=== PATIENT | female | born 1995 | race Caucasian/White ===

== ENCOUNTER 2025-05-23 17:52 | Emergency (ER) | payer MEDICAID, SELFPAY ==
[2025-05-23 17:53] VITALS: BP 127/71; PULSE 85; RESP 16; TEMP 36.9; O2SAT 100; BMI 31.5
--- NOTE | 2025-05-23 18:08 | US_ITS ---
PROCEDURE: TRANSVAGINAL W/PREG US N/A REASON FOR EXAM: RIGHT-SIDED PELVIC PAIN TECHNIQUE: TRANSVAGINAL W/PREG US COMPARISON: None available at the time of this dictation. FINDINGS Single live intrauterine gestation is identified with a crown-rump length measuring 3.7 mm corresponding to a gestational age of 6 weeks and 2 days. No heart rate identified. Clinical and imaging surveillance is advised. Uterus is otherwise unremarkable measuring 8.8 x 6.3 x 5.5 cm. No fibroids. Cervix is closed. Minimal fluid in the cul-de-sac. Bilateral ovaries are noted with preserved symmetric vascular flow. There is however mild fluid in the pelvis. Subchorionic hematoma is noted measuring up to 1.9 cm. US/Transvaginal w/Preg US IMPRESSION: Single live intrauterine gestation corresponding to a gestational age of 6 week s and 2 days. No heart rate identified. Small subchorionic hemorrhage is seen. Clinical and imaging surveillance is ad vised. Reading Location: [facility]
--- NOTE | 2025-05-23 18:10 | EDS_ITS ---
HPI HPI - Female History of Present Illness Chief Complaint: Narrative Narrative: 29-year-old female, G4, P2 at approximately 6 to 7 weeks gestation presents with right-sided pelvic pain and cramping that she has had for the last week. It was severe today so she became concerned and presents to the emergency department. She denies any vaginal bleeding. She states she sees an MEDICAL AND HEALTH SERVICES MANAGER in [place] who is aware of her cramping associated with nausea. She states that her quantitative beta-hCG's have risen appropriately and or in the 40s previously and then her last 1 being 79,000. She denies any exacerbating or alleviating factors. PFSH PFSH Allergy/AdvReac Type Severity Reaction Status Date / Time No Known Allergies Allergy Verified 05/23/25 17:56 Social History Smoking Status: Never smoker ROS ROS ED ROS Narrative Review of systems positive for low back pain and right pelvic pain/cramping. No vaginal bleeding. No fevers or chills. Symptoms present for approximately 1 week, worsened today. Positive nausea but no vomiting. No exacerbating or alleviating factors. EXAM Physical Exam Narrative Exam Narrative: Afebrile. Vital signs noted. Nontoxic-appearing. Cardiovascular examination reveals regular rate and rhythm. Lungs are clear to auscultation bilaterally. The abdomen is soft and nontender with no pain over McBurney's point. No guarding or rebound. Minimal pelvic discomfort on palpation. Neurological examination nonfocal, nonlateralizing. Const Vital Signs: 05/23/25 17:53 05/23/25 20:42 Temperature 98.4 F Temperature Source Oral Pulse Rate 85 83 Respiratory Rate 16 14 Blood Pressure 127/71 H 130/69 H Blood Pressure Mean 89 89 Pulse Ox 100 100 Oxygen Delivery Method Room Air MDM MDM MDM Narrative Medical decision making narrative: The differential diagnosis includes but not limited to acute appendicitis versus ovarian/corpus luteal pain versus ectopic versus threatened AB. She is not having any vaginal bleeding. Pelvic examination was deferred. CBC, CMP, urinalysis, serum and quantitative hCG will be obtained as well as blood type. Her to rule out ectopic, I do feel that ultrasound is indicated. I reviewed her laboratory work and she has normal white count of 5.6 with hemoglobin normal at 12.8, hematocrit 38.0, platelet count normal at 195. CMP shows BUN normal at 12 with creatinine low at 0.57, glucose of 77. LFTs are normal. Blood type is a positive. Quantitative beta-hCG is 58,837. Although she stated that her previous quantitative measurement was 79,000, it is a different health system that performed the measurement. Urine macro analysis shows no evidence of infection with negative nitrites and negative leukocytes. Microanalysis shows 0 bacteria. I do not feel antibiotics are indicated. Reviewed the radiology report of the obstetric ultrasound. It was read as single intrauterine at approximately 6 weeks and 2 days. However, no heart rate was identified. May be too early in the gestation. She has a small subchorionic hemorrhage seen, but denies any vaginal bleeding. Pelvic exam was deferred. At this point in time, I do feel that she could be dis charged unless her microanalysis does not show bacteria. She will follow-up with an MEDICAL AND HEALTH SERVICES MANAGER. She states she no longer wants to see the one in [place]. I was able to discuss patient with Dr. Harley with [facility] MEDICAL AND HEALTH SERVICES MANAGER. It may be expected that they would see a heart rate at this gestation, but she does agree that she probably needs a repeat ultrasound in 5 to 7 days. She is welcome to call the office or follow-up with her original MEDICAL AND HEALTH SERVICES MANAGER. Patient is to return with increased pain, vaginal bleeding, new or worsening symptoms. She was informed that this may be more of a miscarriage/intrauterine demise and she acknowledges an understanding as she has had a previous miscarriage. I stressed the importance of follow-up with ultrasound with an MEDICAL AND HEALTH SERVICES MANAGER. Return instructions to the emergency department were reviewed. Disposition is discharged home in stable condition. History & Record Review Discussion w/independent historian: Patient Additional record(s) reviewed:: No prior records (No prior ED visits) Lab Data Attestation: I reviewed the patient's lab results. Labs: Laboratory Results - last 24 hr 05/23/25 05/23/25 18:13 19:11 WBC 5.6 RBC 4.11 L Hgb 12.8 Hct 38.0 MCV 92.5 MCH 31.1 MCHC 33.7 RDW Std Deviation 42.4 RDW Coeff of Matilde 12.4 Plt Count 195 MPV 10.0 Immature Gran % (Auto) 0.400 Neut % (Auto) 52.0 Lymph % (Auto) 32.3 [place] % (Auto) 13.5 H Eos % (Auto) 1.1 Baso % (Auto) 0.7 Absolute Neuts (auto) 2.9 Absolute Lymphs (auto) 1.82 Nucleated RBC % 0 Sodium 137 Potassium 3.6 Chloride 103 Carbon Dioxide 23.2 Anion Gap 11 BUN 12 Creatinine 0.57 L Estim Creat Clear Calc 154.75 Est GFR (MDRD) Non-Af 125 BUN/Creatinine Ratio 21.8 H Glucose 77 Calcium 9.3 Total Bilirubin 0.29 AST 18 ALT 18 Alkaline Phosphatase 46 Total Protein 7.0 Albumin 4.5 Globulin 2.5 Albumin/Globulin Ratio 1.8 HCG, Quant 31136 H Serum , Qual POSITIVE Urine Color Straw Urine Clarity Clear Urine pH 6.5 Ur Specific [place] 1.005 Urine Protein Negative Urine Glucose (UA) Normal Urine Ketones Negative Urine Occult Blood Negative Urine Nitrite Negative Urine Bilirubin Negative Urine Urobilinogen Normal Ur Leukocyte Esterase Negative Urine RBC 0-5 SEEN Urine WBC 0-5 SEEN Ur Squamous Epith Cells 0-5 SEEN Amorphous Sediment 1+ Urine Bacteria 0 SEEN Urine Mucus 0 SEEN Blood Type A POSITIVE Radiography Diagnostic Testing: Clinical Impression(s) from Imaging Studies Obstetrics Ultrasound 05/23/25 18:08 IMPRESSION: Single live intrauterine gestation corresponding to a gestational age of 6 weeks and 2 days. No heart rate identified. Small subchorionic hemorrhage is seen. Clinical and imaging surveillance is advised. Reading Location: [facility] Discussion w/another healthcare provider: [employer] (Dr. Harley, MEDICAL AND HEALTH SERVICES MANAGER) Discharge Plan Triage Chief Complaint: ED Provider: Kayode Rojas Dx/Rx/DC Orders Clinical Impression: Threatened miscarriage, Pelvic cramping, Subchorionic hemorrhage in first trimester Instructions: Miscarriage Threatened Primary Care Provider: Janessa Barnes Referrals: Anais Meier MD [Med Staff - Active Staff] - 1 Week Janessa Barnes NP-C [Primary Care Provider] - Activity Restrictions/Additional Instructions: You should have an ultrasound repeated in the next 5 to 7 days. Follow-up with Dr. Harley or your MEDICAL AND HEALTH SERVICES MANAGER. Return to the emergency department with increased pain, vaginal bleeding, new or worsening symptoms. Tylenol as directed for pain. Print Language: Estonian Disposition Disposition: Home, Self Care
[2025-05-23 18:46] LABS: Hematocrit 38.0 % (37-47); Hemoglobin 12.8 g/dL (12.0-15.0); Immature Granulocytes Count 0.020 X10^3/uL (0.0-0.0); Mean Corp Hgb Conc 33.7 g/dL (32-36); Mean Corpuscular Volume 92.5 fL (81-99); Mean Platelet Vol. 10.0 fl (6.2-12.0); NRBC Flagged by Analyzer 0 % (0-5); Platelet Count 195 K/mm3 (150-450); RBC Distribution Width CV 12.4 % (11.6-14.6); RBC Distribution Width SD 42.4 fl (35.1-43.9); Red Blood Count 4.11 M/mm3 (4.2-5.4); White Blood Count 5.6 K/mm3 (4.4-11.0)
[2025-05-23 18:52] LABS: Internal QC Validated? YES +Cl - CLEAR BKGD; Record Kit Lot#, Serum Preg. 962302
[2025-05-23 18:54] LABS: Pregnancy, Serum, hCG Quali. POSITIVE Negative
[2025-05-23 19:12] LABS: AST(SGOT) 18 U/L (<=31); Alanine Aminotransfer ALT/SGPT 18 U/L (<=34); Albumin, Serum 4.5 g/dL (3.5-5.0); Alkaline Phosphatase 46 U/L (35-104); Anion Gap 11 (5-15); BUN 12 mg/dL (4-19); BUN/Creat Ratio 21.8 RATIO (10-20); Calcium,Total 9.3 mg/dL (7.6-11.0); Carbon Dioxide 23.2 mmol/L (21.0-32.0); Chloride 103 mmol/L (98-108); Estimated Creatinine Clearance 154.75 ml/min (50-250); Globulin 2.5 g/dL (2.2-4.2); Glucose 77 mg/dL (70-99); Potassium 3.6 mmol/L (3.3-5.1)
[2025-05-23 19:19] LABS: Mucous, Urine 0 SEEN /hpf (<or=2+)
[2025-05-23 19:39] LABS: hCG Titer Quant., Serum 58837 mIU/mL (<9 non-preg)
[2025-05-23 20:00] LABS: Color, Urine Straw (Yellow); Glucose, Dipstick Normal (Normal); Ketone-Dipstick Negative (Negative); Leukocyte Esterase-Dipstick Negative /ul (Negative); Nitrite-Dipstick Negative (Negative); Occult Blood-Urine Negative /ul (Negative); Protein-Dipstick Negative (Negative); Specific Gravity, Urine 1.005 (1.002-1.030); Urine Bilirubin Dipstick Negative (Negative)
[2025-05-23 20:42] VITALS: BP 130/69; PULSE 83; RESP 14; O2SAT 100
[2025-05-23 21:26] LABS: Red Blood Cells-Urine 0-5 SEEN /hpf (0-5); Squamous Epithelial Cells - UA 0-5 SEEN /hpf (5-10)
[2025-05-23 21:47] VITALS: BP 130/69; PULSE 83; RESP 14; TEMP 36.9; O2SAT 100
== END 2025-05-23 21:50 | disposition home or self-care (01) ==
PROVIDERS: Emergency Provider Emergency Medicine; PCP Nurse Practitioner Family; Visit Provider Emergency Medicine
DX: O20.0 Threatened abortion (principal); R10.2 Pelvic and perineal pain; O20.8 Other hemorrhage in early pregnancy; Z3A.01 Less than 8 weeks gestation of pregnancy
CPT/HCPCS: 76817; 80053; 81001; 84702; 84703; 85025; 86900; 86901; 99283; A4216